=== PATIENT | female | born 1995 | race Caucasian/White ===

== ENCOUNTER 2024-11-15 20:52 | Observation (INO) ==
--- NOTE | 2024-11-15 22:05 | Emergency Department Note ---
History of Present Illness General Chief complaint: Flu Like Symptoms Stated complaint: FEVER, SORE THROAT, BODY ACHES, HEACDACHE Time Seen by Provider: 11/15/24 21:33 History of Present Illness This 29-year-old female that is 4 weeks with aplastic anemia that stopped her treatment presents the ER for flulike illness. She has been sick for 1 day. She is been taking Tylenol for the fever. Patient complains of cough, congestion, sore throat, body aches and pains. Patient denies chest pain, abdominal pain, vomiting, diarrhea, urinary symptoms. 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 Allergies Allergy/AdvReac Type Severity Reaction Status Date / Time Sulfa (Sulfonamide AdvReac Rash Verified 11/15/24 22:25 Antibiotics) Past Med/Surg History Problem List (Updated 11/15/24 @ 23:25 by Annika Lindsay PA-C) Aplastic anemia (Acute) First trimester (Acute) Fever (Acute) Leukocytosis (Acute) Acute streptococcal pharyngitis (Acute) Social History Smoking Status: Never smoker Feels Safe at Home: Yes Review of Systems A total of 10 systems reviewed and were otherwise negative Physical Exam Vital Signs Vital Signs - 24 hr 11/15/24 20:55 11/15/24 21:29 11/15/24 21:29 Temperature 36.9 C Temperature Source Temporal Artery Scan Pulse Rate 133 H 109 H 106 H Pulse Rate [Apical] Pulse Rhythm Regular Regular Pulse Rhythm [Apical] Pulse Strength Normal Pulse Strength [Apical] Respiratory Rate 18 21 Respiratory Effort / Characteristics Respiratory Depth Respiratory Pattern Blood Pressure 147/91 H Blood Pressure [Right Arm] Blood Pressure Mean 109 Blood Pressure Mean [Right Arm] Blood Pressure Position Sitting Blood Pressure Position [Right Arm] Pulse Oximetry 95 97 Oxygen Delivery Method Room Air Room Air Sepsis Recent Fever Within 48 Hours No Sepsis New/Unexplained Change in Mental Status N/A Sepsis Action Taken by Nursing No Action Required 11/15/24 22:00 11/15/24 22:23 11/15/24 23:20 Temperature Temperature Source Pulse Rate Pulse Rate [Apical] 106 H 105 H Pulse Rhythm Pulse Rhythm [Apical] Regular Pulse Strength Pulse Strength [Apical] Normal Respiratory Rate 20 17 Respiratory Effort / Characteristics Non-Labored Non-Labored Spontaneous Respiratory Depth Normal Normal Respiratory Pattern Regular Blood Pressure Blood Pressure [Right Arm] 120/79 124/81 Blood Pressure Mean Blood Pressure Mean [Right Arm] 92 95 Blood Pressure Position Blood Pressure Position [Right Arm] Lying Pulse Oximetry 98 100 Oxygen Delivery Method Room Air Room Air Room Air Sepsis Recent Fever Within 48 Hours Sepsis New/Unexplained Change in Mental Status Sepsis Action Taken by Nursing 11/15/24 23:26 Temperature Temperature Source Pulse Rate Pulse Rate [Apical] 107 H Pulse Rhythm Pulse Rhythm [Apical] Pulse Strength Pulse Strength [Apical] Respiratory Rate 18 Respiratory Effort / Characteristics Non-Labored Spontaneous Respiratory Depth Normal Respiratory Pattern Regular Blood Pressure Blood Pressure [Right Arm] 124/81 Blood Pressure Mean Blood Pressure Mean [Right Arm] 95 Blood Pressure Position Blood Pressure Position [Right Arm] Lying Pulse Oximetry 99 Oxygen Delivery Method Room Air Sepsis Recent Fever Within 48 Hours Sepsis New/Unexplained Change in Mental Status Sepsis Action Taken by Nursing VITALS: Vitals are noted on the nurse's note and reviewed by myself. Vital signs stable. GENERAL: White female speaking full sentences, in no acute distress, nondiaphoretic, well-developed well-nourished. SKIN: The skin was without rashes, erythema, edema, or bruising. There is no tenting of the skin. Capillary reflex less than 2 seconds. HEAD: Normocephalic atraumatic. EARS: External auditory canals clear EYES: Pupils equal round and reactive to light and accommodation. Conjunctivae without injection, sclerae without icterus. Extraocular movements intact. NOSE: Patent, no discharge. MOUTH: Mucous membranes moist. Pharynx with erythema + exudate. Uvula midline. Airway patent. Tongue does not deviate. NECK: Supple without nuchal rigidity. No lymphadenopathy. No thyromegaly. Cervical spine is nontender. No JVD. HEART: Regular rate and rhythm LUNGS: Clear to auscultation bilaterally without wheezes, rales or rhonchi. No retractions or accessory muscle use. ABDOMEN: Positive bowel sounds x 4. Normal tympanic percussion. Soft, nontender, without masses or organomegaly. Diallo sign negative. No guarding or rebound tenderness. No CVA tenderness MUSCULOSKELETAL: No muscle atrophy, erythema, or edema noted. NEURO: Patient was alert and oriented to person place and time. Normal sensation to light and sharp touch. No focal neurological deficits. Course Administered Medications Discontinued Medications Cefepime HCl (Maxipime 2000mg) 2,000 mg in 20 mls @ 5 mls/min IV NOW STA; Protocol Stop: 11/15/24 22:05 Last Admin: 11/15/24 22:29 Dose: 5 mls/min Documented By: HB Sodium Chloride (Nss) 1,000 mls @ 999 mls/hr IV .[id number] ONE Stop: 11/15/24 23:02 Last Infusion: 11/15/24 23:15 Dose: Infused Documented By: Admin: 11/15/24 22:24 Dose: 999 mls/hr Documented By: HB Medical Decision Making Medical Records Attestation: I reviewed the patient's medical records. Home Medications Current Medication List: was personally reviewed by me Laboratory Data Attestation: I reviewed the patient's lab results. 11/15/24 22:20 11/15/24 23:15 Lab Results 11/15/24 11/15/24 11/15/24 Range/Units 21:25 21:37 22:20 WBC 23.01 H (4.8-10.8) K/ul RBC 4.32 (4.20-5.40) M/uL Hgb 12.6 (12.0-16.0) g/dl Hct 37.2 (37.0-47.0) % MCV 86.1 (80.0-100.0) fL MCH 29.2 (25.0-34.0) pg MCHC 33.9 (32.0-36.0) g/dL RDW Std Deviation 41.8 (36.4-46.3) fL RDW Coeff of Beba 13.4 (11.5-14.5) % Plt Count 230 (130-400) K/uL MPV 9.1 L (9.4-12.4) fL Immature Gran % (Auto) 1.0 % Neut % (Auto) 89.9 % Lymph % (Auto) 2.9 % [place] % (Auto) 5.6 % Eos % (Auto) 0.3 % Baso % (Auto) 0.3 % Neut # (Auto) 20.69 H (1.40-6.50) K/uL Lymph # (Auto) 0.66 L (1.20-3.40) K/uL [place] # (Auto) 1.30 H (0.11-0.59) K/uL Eos # (Auto) 0.06 (0.00-0.50) K/uL Baso # (Auto) 0.06 (0.00-0.20) K/uL Immature Gran # (Auto) 0.24 H (0.01-0.20) K/uL Sodium 132 L (136-145) mmol/L Potassium TNP Chloride 105 (98-107) mmol/L Carbon Dioxide 19 L (21-32) mmol/L Anion Gap 8 (3-11) BUN 7 (6-23) mg/dl Creatinine 0.72 (0.6-1.2) mg/dl Est Cr Clr Drug Dosing 111.7 ml/min eGFR 115.28 BUN/Creatinine Ratio 9.7 L (10-20) Glucose 188 H (70-99(Fasting)) mg/dl Lactate 1.5 (0.4-2.0) mmol/L Calcium 8.7 (8.6-10.3) mg/dl Magnesium 1.9 (1.7-2.4) mg/dl Total Bilirubin 0.5 (0.2-1.0) mg/dl Direct Bilirubin TNP AST TNP ALT 17 (7-52) U/L Alkaline Phosphatase 100 (34-104) U/L Troponin I High Sens 5.8 (0-14) pg/ml Total Protein 7.7 (6.0-8.3) gm/dl Albumin 4.3 (3.4-5.0) gm/dl Procalcitonin 3.27 H (0-0.5) ng/ml Urine Color Yellow Urine Appearance Clear (Clear) Urine pH 6.0 (4.5-7.5) Ur Specific [place] 1.006 (1.000-1.030) Urine Protein Negative (Negative) Urine Glucose (UA) Negative (Negative) Urine Ketones Trace H (Negative) Urine Blood Trace H (Negative) Urine Nitrite Negative (Negative) Urine Bilirubin Negative (Negative) Urine Urobilinogen Negative (Negative) Ur Leukocyte Esterase Trace H (Negative) Urine WBC (Auto) 6-10 H (0-5) /hpf Urine RBC (Auto) 0-2 (0-2) /hpf U Hyaline Cast (Auto) 0-2 (0-2) /lpf U Epithel Cells (Auto) 6-10 H (0-2) /hpf Urine Bacteria (Auto) 1+ H (None Seen) Adenovirus (PCR) Not Detected (NotDetected) B. pertussis DNA (PCR) Not Detected (NotDetected) B.parapertussis DNA PCR Not Detected (NotDetected) C. pneumoniae DNA (PCR) Not Detected (NotDetected) Coronavirus OC43 (PCR) Not Detected (NotDetected) Coronavirus HKU1 (PCR) Not Detected (NotDetected) Coronavirus 229E (PCR) Not Detected (NotDetected) SARS-CoV-2 (PCR) Not Detected (NotDetected) Coronavirus NL63 (PCR) Not Detected (NotDetected) Human Metapneumovir PCR Not Detected (NotDetected) Influenza Type A (PCR) Not Detected (NotDetected) Influenza Type B (PCR) Not Detected (NotDetected) M. pneumoniae (PCR) Not Detected (NotDetected) Parainfluenza 1 (PCR) Not Detected (NotDetected) Parainfluenza 2 (PCR) Not Detected (NotDetected) Parainfluenza 3 (PCR) Not Detected (NotDetected) Parainfluenza 4 (PCR) Not Detected (NotDetected) RSV (PCR) Not Detected (NotDetected) Entero/Rhino (PCR) Not Detected (NotDetected) Group A Strep (PCR) DETECTED A (NotDetected) 11/15/24 Range/Units 23:15 WBC (4.8-10.8) K/ul RBC (4.20-5.40) M/uL Hgb (12.0-16.0) g/dl Hct (37.0-47.0) % MCV (80.0-100.0) fL MCH (25.0-34.0) pg MCHC (32.0-36.0) g/dL RDW Std Deviation (36.4-46.3) fL RDW Coeff of Beba (11.5-14.5) % Plt Count (130-400) K/uL MPV (9.4-12.4) fL Immature Gran % (Auto) % Neut % (Auto) % Lymph % (Auto) % [place] % (Auto) % Eos % (Auto) % Baso % (Auto) % Neut # (Auto) (1.40-6.50) K/uL Lymph # (Auto) (1.20-3.40) K/uL [place] # (Auto) (0.11-0.59) K/uL Eos # (Auto) (0.00-0.50) K/uL Baso # (Auto) (0.00-0.20) K/uL Immature Gran # (Auto) (0.01-0.20) K/uL Sodium (136-145) mmol/L Potassium 3.3 L Chloride (98-107) mmol/L Carbon Dioxide (21-32) mmol/L Anion Gap (3-11) BUN (6-23) mg/dl Creatinine (0.6-1.2) mg/dl Est Cr Clr Drug Dosing ml/min eGFR BUN/Creatinine Ratio (10-20) Glucose (70-99(Fasting)) mg/dl Lactate (0.4-2.0) mmol/L Calcium (8.6-10.3) mg/dl Magnesium (1.7-2.4) mg/dl Total Bilirubin (0.2-1.0) mg/dl Direct Bilirubin 0.0 AST 17 ALT (7-52) U/L Alkaline Phosphatase (34-104) U/L Troponin I High Sens (0-14) pg/ml Total Protein (6.0-8.3) gm/dl Albumin (3.4-5.0) gm/dl Procalcitonin (0-0.5) ng/ml Urine Color Urine Appearance (Clear) Urine pH (4.5-7.5) Ur Specific [place] (1.000-1.030) Urine Protein (Negative) Urine Glucose (UA) (Negative) Urine Ketones (Negative) Urine Blood (Negative) Urine Nitrite (Negative) Urine Bilirubin (Negative) Urine Urobilinogen (Negative) Ur Leukocyte Esterase (Negative) Urine WBC (Auto) (0-5) /hpf Urine RBC (Auto) (0-2) /hpf U Hyaline Cast (Auto) (0-2) /lpf U Epithel Cells (Auto) (0-2) /hpf Urine Bacteria (Auto) (None Seen) Adenovirus (PCR) (NotDetected) B. pertussis DNA (PCR) (NotDetected) B.parapertussis DNA PCR (NotDetected) C. pneumoniae DNA (PCR) (NotDetected) Coronavirus OC43 (PCR) (NotDetected) Coronavirus HKU1 (PCR) (NotDetected) Coronavirus 229E (PCR) (NotDetected) SARS-CoV-2 (PCR) (NotDetected) Coronavirus NL63 (PCR) (NotDetected) Human Metapneumovir PCR (NotDetected) Influenza Type A (PCR) (NotDetected) Influenza Type B (PCR) (NotDetected) M. pneumoniae (PCR) (NotDetected) Parainfluenza 1 (PCR) (NotDetected) Parainfluenza 2 (PCR) (NotDetected) Parainfluenza 3 (PCR) (NotDetected) Parainfluenza 4 (PCR) (NotDetected) RSV (PCR) (NotDetected) Entero/Rhino (PCR) (NotDetected) Group A Strep (PCR) (NotDetected) Imaging Data Attestation: I personally reviewed and interpreted this imaging study as follows: Radiologist's Impression: Chest X-Ray 11/15/24 21:57 Exam(s): XR CXR 1 VIEW EXAM: XR Chest, 1 View CLINICAL HISTORY: Reason for exam: Sepsis. TECHNIQUE: Frontal view of the chest. COMPARISON: No relevant prior studies available. FINDINGS: Lungs: Unremarkable. No consolidation. Pleural space: Unremarkable. No pleural effusion or pneumothorax. Heart: Unremarkable. No cardiomegaly or pulmonary vascular congestion. Bones/joints: No acute fracture. No dislocation. IMPRESSION: No evidence of acute cardiopulmonary disease. Electronically signed by: Tyler Hatch M.D. 11/15/24 22:46 PM [facility] Narrative Prior records/ancillary studies reviewed. Triage Nursing notes reviewed. Additional history obtained from family. The patient's history was concerning for fever. Differential diagnosis: Etiologies such as viral syndrome, otitis, pharyngitis, pneumonia, influenza, meningitis, urinary tract infection, sepsis, bacteremia, as well as others were entertained. Physical examination: As above ER treatment provided: An order was placed for continuous cardiac monitoring. The monitor shows a rate of 60-100 with a sinus rhythm per my interpretation. IV fluids, cefepime On reassessment the patient felt better. Diagnostics interpreted by me: ECG: Ordered for weakness EKG: Normal sinus, normal intervals, no acute ST changes, rate of 105. Impression sinus tachycardia independently interpreted by myself The labs Independently Interpreted by myself revealed leukocytosis, positive strep, negative BioFire Blood cultures pending Negative lactic. Elevated procalcitonin Imaging studies: Chest x-ray was reviewed and read by radiology Consultation: A consultation was placed with hospitalist. The case was discussed and diagnostics were reviewed. The patient was evaluated in the ER for further treatment. Medicine will admit. Consultation was placed with heme-onc, Dr. Lerner and the case discussed. They recommend continue with current treatment plan of antibiotics and admission. Consultation was placed with OB, Dr. Hogue and states there is nothing OB needs to do at this time. This appears to be consistent with strep pharyngitis leukocytosis and a aplastic anemic patient currently untreated who was recently on cyclosporine. Patient started on cefepime upon initial evaluation. Blood cultures are pending. Lactic was negative. Pro-Melvin was elevated. Platelet count was stable. Medicine and hematology/oncology were consulted. Patient was admitted to the medical service and is agreeable. By the evaluation outlined above emergent etiologies such as otitis pneumonia, meningitis, urinary tract infection, as well as others were deemed relatively unlikely. The pt informed about the findings as listed above. All questions were answered and pleased with the treatment. The chart was completed utilizing [employer] Speech voice recognition software. Grammatical errors, random word insertions, pronoun errors, and incomplete sentences are an occassional consequence of this system due to software limitations, ambient noise, and hardware issues. Any formal questions or concerns about the content, text, or information contained within the body of this dictation should be directly addressed to the physician nutrition assistant for clarification. Impression & Plan Acute streptococcal pharyngitis, Leukocytosis, Fever, First trimester , Aplastic anemia Discharge Plan Visit Data Chief Complaint: Flu Like Symptoms Stated Complaint: FEVER, SORE THROAT, BODY ACHES, HEACDACHE ED Provider: Hakeem Horowitz ED Midlevel Provider: Annika Lindsay Discharge Problem: Acute streptococcal pharyngitis, Leukocytosis, Fever, First trimester , Aplastic anemia Patient Disposition: Admitted As Inpatient Condition: Good Forms Stand Alone Forms: My [facility] Referrals Referrals: PCP,NO [Physician] -
[2024-11-15] MEDS: SODIUM CHLORIDE 0.9% 1,000 ML IV ONE (22:24)
[2024-11-15] MEDS: CEFEPIME 2000MG 2,000 MG/20 ML SYR IV STA (22:29)
[2024-11-15 22:37] LABS: Adenovirus PCR Not Detected (NotDetected); Bordetella parapertussis PCR Not Detected (NotDetected); Bordetella pertussis PCR Not Detected (NotDetected); Chlamydia pneumoniae PCR Not Detected (NotDetected); Coronavirus 229E PCR Not Detected (NotDetected); Coronavirus CoV-2 (COVID19)PCR Not Detected (NotDetected); Coronavirus HKU1 PCR Not Detected (NotDetected); Coronavirus NL63 PCR Not Detected (NotDetected); Coronavirus OC43PCR Not Detected (NotDetected); Human Metapneumovirus PCR Not Detected (NotDetected); Influenza A PCR Not Detected (NotDetected); Influenza B PCR Not Detected (NotDetected); Mycoplasma pneumoniae PCR Not Detected (NotDetected); Parainfluenza Virus 1 PCR Not Detected (NotDetected); Parainfluenza Virus 2 PCR Not Detected (NotDetected); Parainfluenza Virus 3 PCR Not Detected (NotDetected); Parainfluenza Virus 4 PCR Not Detected (NotDetected); Respiratory Syncytial VirusPCR Not Detected (NotDetected); Rhinovirus/Enterovirus PCR Not Detected (NotDetected)
[2024-11-15 22:39] LABS: Hematocrit (blood only) 37.2 % (37.0-47.0); Hemoglobin 12.6 g/dl (12.0-16.0); Mean Corpuscular Hemoglobin 29.2 pg (25.0-34.0); Mean Corpuscular Hgb Conc 33.9 g/dL (32.0-36.0); Mean Corpuscular Volume 86.1 fL (80.0-100.0); Mean Platelet Volume 9.1 fL (9.4-12.4); Platelet Count 230 K/uL (130-400); RDW Coefficient of Variation 13.4 % (11.5-14.5); RDW Standard Deviation 41.8 fL (36.4-46.3); Red Blood Count 4.32 M/uL (4.20-5.40); White Blood Count 23.01 K/ul (4.8-10.8)
[2024-11-15 22:47] LABS: Appearance Urine Clear (Clear); Bacteria Urine Automated 1+ (None Seen); Bilirubin Urine Negative (Negative); Blood Urine Trace (Negative); Cast Urine Automated 0-2 /lpf (0-2); Color Urine Yellow; Glucose Urine UA Negative (Negative); Ketones Urine Trace (Negative); Leukocyte Esterase Urine Trace (Negative); Nitrite Urine Negative (Negative); Protein Urine Negative (Negative); RBC Urine Automated 0-2 /hpf (0-2); Specific Gravity Urine 1.006 (1.000-1.030); Urobilinogen Urine Negative (Negative)
--- NOTE | 2024-11-15 22:47 | XRay Report ---
Exam(s): XR CXR 1 VIEW EXAM: XR Chest, 1 View CLINICAL HISTORY: Reason for exam: Sepsis. TECHNIQUE: Frontal view of the chest. COMPARISON: No relevant prior studies available. FINDINGS: Lungs: Unremarkable. No consolidation. Pleural space: Unremarkable. No pleural effusion or pneumothorax. Heart: Unremarkable. No cardiomegaly or pulmonary vascular congestion. Bones/joints: No acute fracture. No dislocation. IMPRESSION: No evidence of acute cardiopulmonary disease. Electronically signed by: Tyler Hatch M.D. 11/15/24 22:46 PM
[2024-11-15 22:59] LABS: Alanine Aminotransferase 17 U/L (7-52); Albumin Level 4.3 gm/dl (3.4-5.0); Alkaline Phosphatase 100 U/L (34-104); Anion Gap 8 (3-11); BUN Creatinine Ratio 9.7 (10-20); Bilirubin,Total 0.5 mg/dl (0.2-1.0); Blood Urea Nitrogen 7 mg/dl (6-23); Calcium 8.7 mg/dl (8.6-10.3); Carbon Dioxide 19 mmol/L (21-32); Chloride 105 mmol/L (98-107); Creatinine Clr Calc Pharmacy 111.7 ml/min; Glucose 188 mg/dl (70-99(Fasting)); Magnesium 1.9 mg/dl (1.7-2.4); Sodium 132 mmol/L (136-145); Total Protein 7.7 gm/dl (6.0-8.3); Troponin I High Sensitivity 5.8 pg/ml (0-14)
[2024-11-15 23:00] LABS: Basophils # (auto) 0.06 K/uL (0.00-0.20); Basophils % (auto) 0.3 %; Eosinophils # (auto) 0.06 K/uL (0.00-0.50); Eosinophils % (auto) 0.3 %; Immature Granulocytes # (auto) 0.24 K/uL (0.01-0.20); Lymphocytes # (auto) 0.66 K/uL (1.20-3.40); Lymphocytes % (auto) 2.9 %; Monocytes % (auto) 5.6 %; Neutrophils # (auto) 20.69 K/uL (1.40-6.50); Neutrophils % (auto) 89.9 %
[2024-11-15 23:42] LABS: Potassium 3.3 mmol/L (3.5-5.1)
--- NOTE | 2024-11-16 00:21 | History & Physical Report ---
Date of Service November 16, 2024 Assessment & Plan (1) Acute streptococcal pharyngitis: (2) Aplastic anemia: (3) Leukocytosis: (4) First trimester : (5) Hyponatremia: (6) Hypokalemia: Plan Patient is a 29-year-old female who has a past medical history of aplastic anemia, she follows with [facility] in [place] and is a part of a clinical trial. She stated that she is 4 weeks and stopped taking her medication on Tuesday. She presented to the ED due to sore throat, muscle aches, weakness, and fevers x 1 day. She tested positive for group A strep, has leukocytosis, hyponatremia, and hypokalemia. She is being admitted for IV antibiotics with hematology and OB consults. #group A strep Positive for group A strep on bio fire in ED High risk given aplastic anemia and CXR negative Afebrile in ED however patient noted temperature of 104.3F at home mildly tachycardic on admission, HR 107 likely secondary to acute infection Pro-Melvin 3.27 likely inflammatory rxn lactate negative on admission Monospot negative isolation preacutions IVF resuscitation 1L NSS bolus in ED, continue NSS at 80 mL/h overnight Continue cefepime 2G IV every 12h Supportive care with hydration and Tylenol as needed CMV screen/titer ordered on admission #aplastic anemia Patient with history of aplastic anemia on clinical trial with [facility] patient holding clinical trial medications since 11/12/2024 due to CBC in ED showed neutrophilia (28.69), lymphopenia (0.66), monocytosis (1.30) - along with left shift Hematology on board for admission, no change to treatment plan at this time Consult heme/onc trend cbc #leukocytosis WBC 23.01 with neutrophil predominance and left shift as above 2/2 acute infection and history of aplastic anemia Unsure of baseline as racing secretary is working to obtain records at this time Consult heme-onc as above # Patient stated she is approximately 4 weeks - has not established care with OB yet qualitative hCG positive on admission High risk given history of aplastic anemia and acute infection Cefepime and potassium repletion safe in Consult [facility] [employer] #hyponatremia NA 132 on admission 2/2 acute infection and decreased p.o. intake Serum osmole, urine osmole, urine sodium ordered Anticipate to improve with IVF resuscitation with NSS as above # hypokalemia 2/2 acute infection and decreased p.o. intake K+ 3.3 on admission potassium repletion - 30 mEq IV K rider + 40 mEq p.o. Mg stable, 1.9 Trend BMP and Mg VTE ppx: SCDs Diet: regular Dispo: med/tele ER community outreach specialist working to obtain records from [facility] and PCP. With admission being in the middle of the night, daytime team to follow-up on these. Ordered placed to request records. Admission and Anticipated Discharge Date Admission Date: 11/16/24 History of Present Illness Chief Complaint: flulike symptoms Primary Care Provider: Jose Luis Ravinderlilli Patient is a 29-year-old female who has a past medical history of aplastic anemia, she follows with [facility] in [place] and is a part of a clinical trial. She stated that she is 4 weeks and stopped taking her medication on Tuesday. She presented to the ED due to sore throat, muscle aches, weakness, and fevers x 1 day. She tested positive for group A strep, has leukocytosis, hyponatremia, and hypokalemia. She is being admitted for IV antibiotics with hematology and OB consults. Patient seen at bedside with partner present. She stated that her symptoms began yesterday when she did not feel well. She stated she had a sore throat, weakness, muscle aches, pain, fever. She noted a fever as high as 104.3F. she also endorses decreased appetite and states she has not eaten much today which could be contributing to her electrolyte abnormalities. She went to her primary care doctor this morning in [place] who tested her for start strep which was negative. She stated she had a positive home test and a positive blood test with [facility] on Tuesday. He quit taking her medication for the clinical trial for aplastic anemia on Tuesday due to the . She stated that the [facility] is aware that she is holding her medication. Patient denies headache, dizziness, lightheadedness, rhinorrhea, sore throat, cough, sputum production, dyspnea, dyspnea on exertion, chest pain, abdominal pain, nausea, vomiting, diarrhea, dysuria, rashes. She does not use nicotine products or drink alcohol. She denies any other past medical history aside from aplastic anemia; denies DM or previous VTE. She does not take any other home medications then the medication for clinical trial which she is currently holding. She wishes to be full code at this time. ED provider spoke with gluing machine operator automatic, Dr. Boothe, who recommended no different treatment plan at this time, will evaluate patient in AM. Patient has not yet established care with OB as she is only 4 weeks . Will consult OB as this is a high risk with acute infection and history of aplastic anemia. Allergies Allergy/AdvReac Type Severity Reaction Status Date / Time Sulfa (Sulfonamide AdvReac Rash Verified 11/15/24 22:25 Antibiotics) Home Medications Medication Instructions Recorded Confirmed Type amoxicillin 500 mg capsule 500 mg PO TID 10 days #30 caps 11/16/24 Rx Past Med/Surg History Problem List (Updated 11/16/24 @ 01:37 by Rodri Mathis) Hypokalemia Hyponatremia Aplastic anemia (Acute) First trimester (Acute) Fever (Acute) Leukocytosis (Acute) Acute streptococcal pharyngitis (Acute) Social History Smoking Status: Never smoker Hx Alcohol Use: No Hx Substance Use: No Preferred Language: Georgian Communication Ability: Effective Air Defense Specialist Required: No Beliefs That Will Affect Care: None Current Living Situation: Spouse Other Information That Helps Us Care for You: No Feels Safe at Home: Yes Safety Concerns: Feels Safe At This Time Assistive Devices: Glasses Review of Systems Review of Systems: See HPI Physical Exam Physical Exam: The patient is awake, alert and oriented 3, well developed and well nourished, normocephalic and atraumatic, in no acute distress. Non-toxic appearing. HEENT- EOMI, mucous membranes moist. Hearing grossly intact. Heart-normal S1 and S2. No murmurs, rubs or gallops. Lungs-clear bilaterally, no respiratory distress, no accessory muscle use. Abdomen-normal bowel sounds and soft. No ascites noted. Non-tender. Extremities- no clubbing, cyanosis, or edema. Rheumatologic-normal range of motion. Psychiatric-normal affect. Results & Data Results & Data Vital Signs (Past 12 Hours) Vital Signs Temp Pulse Pulse Resp BP BP Pulse Ox 11/15/24 23:26 107 H 18 124/81 99 11/15/24 23:20 105 H 17 124/81 100 11/15/24 22:23 11/15/24 22:00 106 H 20 120/79 98 11/15/24 21:29 106 H 21 97 11/15/24 21:29 109 H 11/15/24 20:55 36.9 C 133 H 18 147/91 H 95 O2 Del Method 11/15/24 23:26 Room Air 11/15/24 23:20 Room Air 11/15/24 22:23 Room Air 11/15/24 22:00 Room Air 11/15/24 21:29 Room Air 11/15/24 21:29 11/15/24 20:55 Room Air Laboratory Results reviewed CBC, CMP, magnesium, lactate, Pro-Melvin, UA, troponin, biofire Ordered hCG, Monospot, CMV, serum osmole, urine osmole, urine sodium on admission Diagnostic Findings reviewed CXR, negative Medications Administered ed: 1 L NSS bolus, 2G IV cefepime ECG Additional Comments: sinus tachy, rate 105 Code Status & VTE Plan Code Status full code VTE Prophylaxis Plan VTE Prophylaxis will be ordered: Yes Supervising Physician Co-Signing Physician Notes Attending addendum: I have physically seen this patient, have supervised the medical residents activities, and agree with the H&P unless as otherwise noted. Assessment and Plan: The patient is a 29-year-old female with past medical history including aplastic anemia following with [facility] in [place], as part of clinical trial. She reports that 4 weeks ago she became , and stopped taking medication about 3 days ago. She presents to the ED with complaint of sore throat, generalized muscle aches, weakness and fever x 24 hours. Workup in the emergency department included respiratory BioFire positive for group A strep, with a WBC of 23.1 with left shift. She will be admitted for IV antibiotics, with hematology and OB consults #Group A strep pharyngitis- Received cefepime 2 g IV from the ED, and normal saline 1 L fluid bolus Patient did meet mild septic criteria upon admission due to increased heart rate, leukocytosis, and initial borderline low blood pressure. Procalcitonin also 3.27 Monospot negative, CMV pending Admitting on cefepime 2 g IV every 12 hours IV fluid resuscitation status post 1 L normal saline bolus in ED, will continue NSS at 80 mL/h x 1 additional liter #Aplastic anemia- Follow-up with [facility] Reports that she was a complete responder Hematology has been consulted, will see patient in the a.m. Repeat CBC with differential in the a.m. #4-week Consulted with OB, who will see patient in the a.m., and monitor as needed #Electrolyte changes- Sodium 132, with potassium 3.3 on admission and magnesium 1.9 Potassium repletion as noted, IV fluids as noted, repeat laboratories in the a.m. PG Care Time/CCT Total # of Minutes Spent Total Time Spent with Patient: Total time spent is greater than 50% in coordination of care (as documented) at patient's floor/unit and/or counseling patient: Coding Level of Care Code 52802 INT INP/OBS CARE 3/75MIN Diagnoses Acute streptococcal pharyngitis J02.0 Aplastic anemia D61.9 Leukocytosis D72.829 First trimester Z34.91 Hyponatremia E87.1 Hypokalemia E87.6
[2024-11-16 00:30] LABS: Monotest Negative (Negative); Pregnancy Test, Serum Positive (Negative)
[2024-11-16] MEDS: POTASSIUM CHLORIDE CRTAB 20 MEQ TABCR PO STA (00:50)
[2024-11-16] MEDS: SODIUM CHLORIDE 0.9% 1,000 ML IV SCH (00:51)
[2024-11-16] MEDS: POTASSIUM CHLORIDE / WTR 10 MEQ/100 ML PLCT IV SCH (00:51)
[2024-11-16] MEDS: ACETAMINOPHEN 325 MG TAB PO PRN (02:07)
[2024-11-16 06:26] LABS: Hematocrit (blood only) 34.6 % (37.0-47.0); Hemoglobin 11.5 g/dl (12.0-16.0); Mean Corpuscular Hemoglobin 29.2 pg (25.0-34.0); Mean Corpuscular Hgb Conc 33.2 g/dL (32.0-36.0); Mean Corpuscular Volume 87.8 fL (80.0-100.0); Mean Platelet Volume 8.7 fL (9.4-12.4); Platelet Count 190 K/uL (130-400); RDW Coefficient of Variation 13.7 % (11.5-14.5); RDW Standard Deviation 44.1 fL (36.4-46.3); Red Blood Count 3.94 M/uL (4.20-5.40); White Blood Count 21.03 K/ul (4.8-10.8)
[2024-11-16 06:49] LABS: BUN Creatinine Ratio 8.3 (10-20); Calcium 8.5 mg/dl (8.6-10.3); Creatinine Clr Calc Pharmacy 134.5 ml/min; Potassium 4.1 mmol/L (3.5-5.1)
[2024-11-16 07:06] LABS: Basophils # (auto) 0.04 K/uL (0.00-0.20); Basophils % (auto) 0.2 %; Echinocytes 1+; Eosinophils # (auto) 0.03 K/uL (0.00-0.50); Eosinophils % (auto) 0.1 %; Immature Granulocytes # (auto) 0.27 K/uL (0.01-0.20); Immature Granulocytes % (auto) 1.3 %; Lymphocytes # (auto) 0.97 K/uL (1.20-3.40); Lymphocytes % (auto) 4.6 %; Monocytes # (auto) 1.31 K/uL (0.11-0.59); Monocytes % (auto) 6.2 %; Neutrophils # (auto) 18.41 K/uL (1.40-6.50); Neutrophils % (auto) 87.6 %; Polychromasia 1+
[2024-11-16 07:32] VITALS: RESP 20; O2SAT 98
[2024-11-16 07:38] LABS: Toxic Vacuolation 2+
--- NOTE | 2024-11-16 07:40 | Consultation ---
Date of Consultation November 16, 2024 Assessment & Plan (1) Hypokalemia: Present on Admission?: Yes (2) Hyponatremia: Present on Admission?: Yes (3) Aplastic anemia: Present on Admission?: Yes (4) First trimester : Present on Admission?: Yes (5) Fever: Present on Admission?: Yes (6) Leukocytosis: Present on Admission?: Yes (7) Acute streptococcal pharyngitis: Present on Admission?: Yes Plan Patient stated she is approximately 4 weeks - has not established care with OB yet qualitative hCG positive on admission High risk given history of aplastic anemia and acute infection Cefepime and potassium repletion as ordered No other special orders needed from OB stand point Thank you for the consult Any further questions, please contact flight operations dispatch clerk physician History of Present Illness Reason for Consultation: Early , IUP at 4 weeks, Aplastic Anemia Attending Physician: Shashank Domingo, DO History of Present Illness Patient is a 29-year-old female who has a past medical history of aplastic anemia, she follows with [facility] in [place] and is a part of a clinical trial. She stated that she is 4 weeks and stopped taking her medication on Tuesday. She presented to the ED due to sore throat, muscle aches, weakness, and fevers x 1 day. She tested positive for group A strep, has leukocytosis, hyponatremia, and hypokalemia. She is being admitted for IV antibiotics with hematology VTE ppx: SCDs Diet: regular Dispo: med/tele Patient is a 29-year-old female who has a past medical history of aplastic anemia, she follows with [facility] in [place] and is a part of a clinical trial. She stated that she is 4 weeks and stopped taking her medication on Tuesday. She presented to the ED due to sore throat, muscle aches, weakness, and fevers x 1 day. She tested positive for group A strep, has leukocytosis, hyponatremia, and hypokalemia. She is being admitted for IV antibiotics with hematology and OB consults. Patient seen at bedside with partner present. She stated that her symptoms began yesterday when she did not feel well. She stated she had a sore throat, weakness, muscle aches, pain, fever. She noted a fever as high as 104.3F. she also endorses decreased appetite and states she has not eaten much today which could be contributing to her electrolyte abnormalities. She went to her primary care doctor this morning in [place] who tested her for start strep which was negative. She stated she had a positive home test and a positive blood test with [facility] on Tuesday. He quit taking her medication for the clinical trial for aplastic anemia on Tuesday due to the . She stated that the [facility] is aware that she is holding her medication. Patient denies headache, dizziness, lightheadedness, rhinorrhea, sore throat, cough, sputum production, dyspnea, dyspnea on exertion, chest pain, abdominal pain, nausea, vomiting, diarrhea, dysuria, rashes. She does not use nicotine products or drink alcohol. She denies any other past medical history aside from aplastic anemia; denies DM or previous VTE. She does not take any other home medications then the medication for clinical trial which she is currently holding. She wishes to be full code at this time. Patient has not yet established care with OB as she is only 4 weeks . Will consult OB as this is a high risk with acute infection and history of aplastic anemia. Allergies Allergy/AdvReac Type Severity Reaction Status Date / Time Sulfa (Sulfonamide AdvReac Rash Verified 11/15/24 22:25 Antibiotics) Past Med/Surg History Problem List (Updated 11/16/24 @ 00:32 by Gretel Jeffrey PA-C) Hypokalemia Hyponatremia Aplastic anemia (Acute) First trimester (Acute) Fever (Acute) Leukocytosis (Acute) Acute streptococcal pharyngitis (Acute) Social History Smoking Status: Never smoker Feels Safe at Home: Yes Review of Systems Review of Systems: See HPI Allergies Allergy/AdvReac Type Severity Reaction Status Date / Time Sulfa (Sulfonamide AdvReac Rash Verified 11/15/24 22:25 Antibiotics) Patient History Social History Smoking Status: Never smoker Hx Alcohol Use: No Hx Substance Use: No Preferred Language: Luxembourgish Communication Ability: Effective Appointment Setter Required: No Beliefs That Will Affect Care: None Current Living Situation: Spouse Other Information That Helps Us Care for You: No Feels Safe at Home: Yes Safety Concerns: Feels Safe At This Time Assistive Devices: Glasses Results & Data Vital Signs (Past 12 Hours) Vital Signs Temp Pulse Pulse Resp BP BP Pulse Ox 11/16/24 07:16 102 H 11/16/24 03:52 37.8 C H 109 H 16 109/69 95 11/16/24 02:09 11/16/24 02:09 38.2 C H 121 H 18 130/78 99 11/16/24 01:50 117 H 11/16/24 01:50 38.2 C H 121 H 18 120/78 99 11/16/24 01:37 107 H 21 130/88 98 11/15/24 23:26 107 H 18 124/81 99 11/15/24 23:20 105 H 17 124/81 100 11/15/24 22:23 11/15/24 22:00 106 H 20 120/79 98 11/15/24 21:29 106 H 21 97 11/15/24 21:29 109 H 11/15/24 20:55 36.9 C 133 H 18 147/91 H 95 O2 Del Method 11/16/24 07:16 11/16/24 03:52 Room Air 11/16/24 02:09 Room Air 11/16/24 02:09 Room Air 11/16/24 01:50 11/16/24 01:50 Room Air 11/16/24 01:37 Room Air 11/15/24 23:26 Room Air 11/15/24 23:20 Room Air 11/15/24 22:23 Room Air 11/15/24 22:00 Room Air 11/15/24 21:29 Room Air 11/15/24 21:29 11/15/24 20:55 Room Air
--- NOTE | 2024-11-16 08:44 | Medical Student Progress Note ---
Date of Service November 16, 2024 Assessment & Plan (1) Hypokalemia: (2) Hyponatremia: (3) Aplastic anemia: (4) First trimester : (5) Fever: (6) Leukocytosis: (7) Acute streptococcal pharyngitis: Plan #acute streptococcal pharyngitis -recorded home fevers <104, leukocytosis of >20 with neutrophil predominance on admission -group A strep (+), procal 3.27 -Tylenol PRN for fever and pain -discontinue cefepime, start amoxicillin #aplastic anemia -WBC 21, RBC 3.94, Hgb 11.5, Hct 34.6 -has been on a clinical trial of cyclosporine 75mg PO daily from - 11/12/24, pt d/c'd med due to . she was supposed to be in the clinical trial until -pt notes an admission in Aug 2023 at [facility] and said she was told she is a "complete responder" -patient without neutropenia, resolving fevers and tachycardia. will deescalate abx as above -heme consulted, apprec recs #first trimester -OBGYN consulted -approx 4 weeks -patient currently working to get in with high risk OBGYN #hypokalemia, hyponatremia -potassium repletion, maintenance fluids -resolved, continue to monitor BMP Dispo: med/surg w tele diet: regular VTE ppx: low risk, SCDs and ambulation Admission and Anticipated Discharge Date Admission Date: November 16, 2024 Subjective feeling better today, less fever and aches. continues to have sore throat and mild headache. no SOB, abd or chest pain, vaginal bleeding, or leaking of fluid. Physical Exam Constitutional: well appearing, no acute distress ENMT: L>R b/l edematous, erythematous tonsils with excess exudates/purulence Respiratory: normal respiratory effort, lungs clear to auscultation Cardiovascular: RRR, no murmur, no edema Skin: no rashes, warm and dry Results & Data Vital Signs (Past 12 Hours) Vital Signs Temp Pulse Pulse Resp BP BP BP 11/16/24 07:31 37.8 C H 104 H 20 118/80 11/16/24 07:16 102 H 11/16/24 03:52 37.8 C H 109 H 16 109/69 11/16/24 02:09 11/16/24 02:09 38.2 C H 121 H 18 130/78 11/16/24 01:50 117 H 11/16/24 01:50 38.2 C H 121 H 18 120/78 11/16/24 01:37 107 H 21 130/88 11/15/24 23:26 107 H 18 124/81 11/15/24 23:20 105 H 17 124/81 11/15/24 22:23 11/15/24 22:00 106 H 20 120/79 11/15/24 21:29 106 H 21 11/15/24 21:29 109 H 11/15/24 20:55 36.9 C 133 H 18 147/91 H Pulse Ox O2 Del Method 11/16/24 07:31 98 Room Air 11/16/24 07:16 11/16/24 03:52 95 Room Air 11/16/24 02:09 Room Air 11/16/24 02:09 99 Room Air 11/16/24 01:50 11/16/24 01:50 99 Room Air 11/16/24 01:37 98 Room Air 11/15/24 23:26 99 Room Air 11/15/24 23:20 100 Room Air 11/15/24 22:23 Room Air 11/15/24 22:00 98 Room Air 11/15/24 21:29 97 Room Air 11/15/24 21:29 11/15/24 20:55 95 Room Air
[2024-11-16] MEDS: CEFEPIME 2000MG 2,000 MG/20 ML SYR IV SCH (09:53)
[2024-11-16] MEDS: COUGH DROP (SUGAR FREE) LOZ 24 LOZ/1 BOX BUCCAL PRN (10:10)
[2024-11-16 11:09] VITALS: PULSE 101; TEMP 99.1
[2024-11-16 12:39] VITALS: BP 109/69
--- NOTE | 2024-11-16 12:46 | Med Student Discharge Summary ---
Date of Service November 16, 2024 Admission HPI Per Admitting Provider Patient is a 29-year-old female who has a past medical history of aplastic anemia, she follows with [facility] in [place] and is a part of a clinical trial. She stated that she is 4 weeks and stopped taking her medication on Tuesday. She presented to the ED due to sore throat, muscle aches, weakness, and fevers x 1 day. She tested positive for group A strep, has leukocytosis, hyponatremia, and hypokalemia. She is being admitted for IV antibiotics with hematology and OB consults. Patient seen at bedside with partner present. She stated that her symptoms began yesterday when she did not feel well. She stated she had a sore throat, weakness, muscle aches, pain, fever. She noted a fever as high as 104.3F. she also endorses decreased appetite and states she has not eaten much today which could be contributing to her electrolyte abnormalities. She went to her primary care doctor this morning in [place] who tested her for start strep which was negative. She stated she had a positive home test and a positive blood test with [facility] on Tuesday. He quit taking her medication for the clinical trial for aplastic anemia on Tuesday due to the . She stated that the [facility] is aware that she is holding her medication. Patient denies headache, dizziness, lightheadedness, rhinorrhea, sore throat, cough, sputum production, dyspnea, dyspnea on exertion, chest pain, abdominal pain, nausea, vomiting, diarrhea, dysuria, rashes. She does not use nicotine products or drink alcohol. She denies any other past medical history aside from aplastic anemia; denies DM or previous VTE. She does not take any other home medications then the medication for clinical trial which she is currently holding. She wishes to be full code at this time. ED provider spoke with equipment sales specialist, Dr. Boothe, who recommended no different treatment plan at this time, will evaluate patient in AM. Patient has not yet established care with OB as she is only 4 weeks . Will consult OB as this is a high risk with acute infection and history of aplastic anemia. Admission Exam (Per Admitting) Constitutional The patient is awake, alert and oriented 3, well developed and well nourished, normocephalic and atraumatic, in no acute distress. Non-toxic appearing. HEENT- EOMI, mucous membranes moist. Hearing grossly intact. Heart-normal S1 and S2. No murmurs, rubs or gallops. Lungs-clear bilaterally, no respiratory distress, no accessory muscle use. Abdomen-normal bowel sounds and soft. No ascites noted. Non-tender. Extremities- no clubbing, cyanosis, or edema. Rheumatologic-normal range of motion. Psychiatric-normal affect. Respiratory normal respiratory effort, lungs clear to auscultation Cardiovascular RRR, no murmur, no edema Gastrointestinal (Abdomen) normal bowel sounds, soft, nontender, no hepatosplenomegaly Skin no rashes, warm and dry Discharge Exam Constitutional comfortable, well appearing ENMT L>R b/l edematous, erythematous tonsils with excessive exudates/purulence Respiratory normal respiratory effort, lungs clear to auscultation Cardiovascular RRR, no murmur, no edema Gastrointestinal (Abdomen) normal bowel sounds, soft, nontender, no hepatosplenomegaly Skin no rashes, warm and dry Discharge Data Consultations 11/16/24 00:14 ED Decision to Admit Stat 11/16/24 01:50 Consult Hematology Routine Consult Obstetrics Routine Hospital Course (1) Hypokalemia: (2) Hyponatremia: (3) Aplastic anemia: (4) First trimester : (5) Fever: (6) Leukocytosis: (7) Acute streptococcal pharyngitis: Plan #acute streptococcal pharyngitis -Group A (+), leukocytosis on arrival >20, tachycardic, febrile with flu like symptoms -down trending WBC, normalizing vitals upon d/c -continue home amoxicillin 500mg TID for a total of 10 days #aplastic anemia -Patient with history of aplastic anemia on clinical trial with [facility], was taking cyclosprine 75 mg PO daily from - 11/12/2024. patient stopped due to . states she was told she was a "complete responder" -CBC in ED showed neutrophilia (28.69), lymphopenia (0.66), monocytosis (1.30) - along with left shift -blood counts and hgb reassuring, no neutropenia -follow up with doctor at [facility] who is managing care #first trimester -Patient stated she is approximately 4 weeks - has not established care with OB yet -is set up to follow up with [facility] and will set up care with [facility] considering hx of anemia and experimental drug trials Discharge Plan Discharge Items Patient Disposition: Home - Self-Care Reason For Visit: GROUP A STREP,APLASTIC ANEMIA, Discharge Diagnosis: Group A strep Condition on Discharge: Good Activity: Resume your previous activity Non-emergency contact: Primary Care Provider Call non-emergency contact if: you have any medication questions, your pain is concerning for you and your temperature is above 101.5 Follow-up/Referrals: Jose Luis Parkinson CRNP [Primary Care Provider] - (Please call your primary care provider to schedule a hospital discharge follow-up appointment within 7-10 days) Diet: Regular Addtl Attending Provider Instructions: You were admitted to the hospital for strep throat. You were treated with antibiotics and got better. A discharge summary will be sent to your primary care physician to ensure continuity of care. Please bring this discharge summary with you to your next office appointment so that your provider can review it at that time. Follow-up appointments: * Make a follow-up appointment with your PCP within the next week. It is very important that you follow up with them shortly after discharge from the hospital. * Keep all your follow-up appointments as already scheduled. If you cannot make an appointment, notify your provider. Medications: Your medication list has been reviewed and reconciled upon discharge to ensure accuracy and continuity of care. An updated list of all your medications is included with your hospital discharge paperwork. Please review this list closely, and make note of any changes. * Continue amoxicillin to your pharmacy. Take amoxicillin (500mg) 1 tab , three times a day for 10 days total. * If you have any issues filling these prescriptions, please call [phone] and ask to leave a message for Dr. Martinez. * Take your medications as instructed; do not skip a dose of your medicines. Make sure all of your doctors know every medicine you are taking (including cvyi-nty-ntniarg medicines, vitamins, and supplements). Call your primary care provider before taking any new medicines (including over- the-counter medicines, vitamins, and supplements), because some of these may interact with your current medications, or may make your symptoms worse. Tell your primary care provider if you cannot afford your medications. CONTACT YOUR PRIMARY CARE PROVIDER if you experience any of the following: * Worsening of symptoms * Fever, chills, or fatigue * Difficulty following your treatment plan, or difficulty taking medications CALL 911 OR GO TO THE EMERGENCY DEPARTMENT if you experience any of the following: * Sudden, severe abdominal pain or nausea/vomiting * Severe chest pain, or chest pain that radiates (moves) to your jaw or arm * Sudden, severe shortness of breath or difficulty breathing Thank you for allowing us to participate in your care. Pending Studies at Discharge: No Stand-Alone Forms: My [facility], Smoking Cessation Medications and DC Order Prescriptions: New amoxicillin 500 mg capsule 500 mg PO TID 10 Days Qty: 30 0RF Discharge Orders: Discharge Order (Routine); Ordered 11/16/24 Ordered By: Mckinley Martinez Admission Data Admit Date/Time: 11/16/24 00:18 Attending Provider: Shashank Domingo Admit Provider: Lele Vazquez Primary Care Provider: Jose Luis Parkinson Other Providers: Lisa Hogue; Lele Vazquez Other Interventions: Discharge Summary Assessment (RN) Last Done: 11/16/24 12:38 Supervising Attestation I personally examined the patient and verified all condon points of history and exam, discussed case, and agree with decision making with Dr Martinez and Tarah Bauer MS4 Feeling a good deal better. Still with some degree of temperature, throat still very sore. No cough no shortness of breath. No rashes, no urinary symptoms. Otherwise feels okay. Expresses very good understanding of what is going on. Notes that she has been told her aplastic anemia was a complete responder. APPLICATION DEVELOPMENT PROJECT MANAGER input appreciated. Vitals noted, in general she is awake and alert fatigued but no distress. HEENT normocephalic atraumatic mucous membranes moist, pharynx erythematous with rather significant tonsillar exudate, although still very wide/patent oropharynx. Large mobile anterior cervical adenopathy. Lungs clear to auscultation bilaterally no rales rhonchi or wheeze with good effort no accessory muscle use. Skin without rashes pallor or icterus. Neuro without focal deficits. Strep pharyngitis with sepsis present on admissionfortunately not severe sepsis; at the same time, discussed with patient it was a little bit odd to see someone as septic as she was with simply strep pharyngitiswhich is probably where her immune compromise comes into play. She expressed a good understanding of this. At the same time, strep is almost universally beta-lactam sensitiveand we discussed that I suspect the amoxicillin she was already started on was working, but just that she had not turned the corner as fast as would be expected for strepagain likely because she has a relative degree of immune compromise. We discussed ongoing watchful waiting in the hospital versus home with close outpatient follow-up. She felt comfortable with going home and would very much like to go homethis seemed safe and reasonable given that she is improving. Discussed red flags of what to watch for as well as to return or get evaluated right away with any new or worsening symptoms. Reached out to her PCP to update herand I anticipate being able to discuss the situation with her later this afternoon. Discussed with the patient that blood cultures are pending, I do not anticipate bacteremia, but if we were to be surprised with positive blood cultures we would need to bring her backshe expressed a good understanding of this as well. Finish out course of amoxicillin. Otherwise safe/stable for home.
--- NOTE | 2024-11-16 14:04 | Billing Data ---
Date of Service November 16, 2024 Coding Level of Care Code 25850 IN/OBS DISCH 30 MIN/LESS
--- NOTE | 2024-11-16 14:04 | Billing Data ---
Date of Service November 16, 2024 Coding Level of Care Code 50509 IN/OBS DISCH 30 MIN/LESS
--- NOTE | 2024-11-16 14:33 | Electrocardiogram Report ---
Test Reason : Blood Pressure : */* mmHG Vent. Rate : 105 BPM Atrial Rate : 105 BPM P-R Int : 168 ms QRS Dur : 98 ms QT Int : 344 ms P-R-T Axes : 59 13 21 degrees QTcB Int : 454 ms Sinus tachycardia Nonspecific T wave abnormality Abnormal ECG No previous ECGs available Confirmed by Hakeem Rivera ([id number]) on 11/16/2024 2:33:16 PM Referred By: REFERRED SELF Confirmed By: Hakeem Rivera
[2024-11-16] MEDS ORDERED: AMOXICILLIN 875 MG TAB PO SCH (21:00)
[2024-11-19 14:02] LABS: CMV IgG Antibody <0.60 U/mL; CMV IgM Antibody <30.00 AU/mL
[2024-11-19 14:16] LABS: EBV Nuclear Ag Antibody <18.00 U/mL; EBV Virus Capsid Ag IgG Ab <18.00 U/mL; Epstein Barr Virus Early Ag Ab <9.00 U/mL
== END 2024-11-16 13:30 | disposition home or self-care (01) | DRG 831 ==
LOC: ED 20:52 → 2W 11-16 00:18 → INTOOBSV 11-16 00:18 → SUATTDRO 11-16 00:18 → 2W 11-16 01:37

== ENCOUNTER 2025-07-11 05:33 | Inpatient (IN) ==
--- NOTE | 2025-07-02 12:37 | Anesthesiology Consultation ---
Date of Service July 02, 2025 Assessment & Plan (1) Encounter for pre-operative examination: - Per battery loader on 07/02/25: No known infectious disease contacts, current infectious disease symptoms in past 10 days or COVID positive test result in the past 30 days. Chart Review Chart Review: data entry initiated History Surgery Operation Date: 07/11/25 07:30 Proposed Procedures p Section in LD (Delivery of Baby through abdominal incision) - Maria Del Rosario Dennis MD, FACOG Height/Weight Height: 5 ft 4 in Weight: 82.554 kg Allergies Allergy/AdvReac Type Severity Reaction Status Date / Time Sulfa (Sulfonamide AdvReac Unknown Rash Verified 07/02/25 11:56 Antibiotics) Medications Home Medications Medication Instructions Recorded Confirmed Last Taken prenat.vits,leticia,[id number] 1 tab PO DAILY 12/11/24 07/02/25 06/22/25 acetone (urine) test (Ketone Urine #50 ea 06/03/25 06/25/25 Unknown Test strips) blood sugar diagnostic (Accu-Chek #150 ea 06/03/25 06/25/25 Unknown Guide test strips) blood-glucose meter (Accu-Chek #1 ea 06/03/25 06/25/25 Unknown Guide Glucose Meter) lancets (Accu-Chek Softclix #200 ea 06/03/25 06/25/25 Unknown Lancets) Past Medical History Medical History (Updated 07/02/25 @ 12:34 by Tammie Terrell PA-C) Aplastic anemia in remission currently Chronic hypertension affecting pt reports hx high blood pressure from side effects of tx for Aplastic Anemia. Gestational diabetes Past Surgical History Surgical History History of laparoscopic cholecystectomy [place] teeth removed hx Social History Smoking Status: Never smoker Do You Dip or Chew Tobacco: No Hx Alcohol Use: No Hx Substance Use: No substance use type: does not use Lab Results Anesthesia Preop Results Results Anesthesia Widget: WBC 11.58 K/ul (4.8-10.8) H 06/23/25 Hgb 11.3 g/dl (12.0-16.0) L 06/23/25 Hct 32.5 % (37.0-47.0) L 06/23/25 Plt 204 K/uL (130-400) 06/23/25 Na 136 mmol/L (136-145) 06/23/25 K 3.1 mmol/L (3.5-5.1) L 06/23/25 Cl 107 mmol/L (98-107) 06/23/25 CO2 20 mmol/L (21-32) L 06/23/25 BUN 5 mg/dl (6-23) L 06/23/25 Creat 0.55 mg/dl (0.6-1.2) L 06/23/25 Glucose Level 85 mg/dl (70-99(Fasting)) 06/23/25 POC Glucose 81 mg/dl (70-99) 05/25/25 Testing Electrocardiogram Date: 11/15/24 Sinus tachycardia, rate 105 bpm Nonspecific T wave abnormality Chest X-Ray Date: 11/15/24 *1 view* No evidence of acute cardiopulmonary disease. Echocardiogram Date: 01/31/25 EF 60-65% Normal LV wall motion No significant valvular pathology Other Testing Brain MRI 10/15/24 No acute intracranial pathology
[2025-07-11 06:10] LABS: Hematocrit (blood only) 33.3 % (37.0-47.0); Hemoglobin 10.9 g/dl (12.0-16.0); Immature Granulocytes # (auto) 0.17 K/uL (0.01-0.20); Immature Granulocytes % (auto) 1.7 %; Mean Corpuscular Hemoglobin 28.2 pg (25.0-34.0); Mean Corpuscular Volume 86.3 fL (80.0-100.0); Platelet Count 194 K/uL (130-400); RDW Standard Deviation 41.6 fL (36.4-46.3); Red Blood Count 3.86 M/uL (4.20-5.40); White Blood Count 10.10 K/ul (4.8-10.8)
[2025-07-11] MEDS ORDERED: SODIUM CHLORIDE 0.9% 100 ML IV PRN (06:10)
[2025-07-11] MEDS: LACTATED RINGER'S 1,000 ML IV SCH (06:15)
[2025-07-11] MEDS: ACETAMINOPHEN 500 MG TAB PO SCH (06:16)
[2025-07-11] MEDS ORDERED: LACTATED RINGER'S 1,000 ML IV SCH ×2 (06:45→09:00)
--- NOTE | 2025-07-11 07:10 | History & Physical Report ---
Date of Service July 11, 2025 Assessment & Plan (1) Encounter for pre-operative examination: Plan: Repeat section. The patient was counseled to the nature of the procedure including alternatives such as labor. Risks were discussed including bleeding infection injury to bowel bladder ureter vessels and even baby. The risks of internal organ injury were discussed as being higher with prior sections. Deep Vein Thrombosis, pulmonary embolus and breakdown of the incision discussed. Deep vein thrombosis pulmonary embolus hernia and failure of the incision to heal were discussed Patient verbalized understanding of this and was given ample time to ask questions Also wishes tubal Tubal ligation, bilateral salpingectomy, possible coagulation of tubes. Alternatives discussed including medical, implant, IUD options. Failure rate discussed. Risks including injury to internal organs, infection, deep vein thrombosis, hernia, anesthetic risks discussed. Option of not doing surgery discussed. All questions answered Admission and Anticipated Discharge Date Admission Date: July 11, 2025 History of Present Illness Primary Care Provider: Jose Luis Parkinson Visit JEREMY Calculator Estimated Delivery Date Method Current WG Current Estimate 07/23/25 LMP (Certain) 38w 1d Other Estimates 07/22/25 Ultrasound #1 38w 2d LMP: 10/16/24 : 2 Full term: 1 Premature: 0 Total Number of Induced Abortions: 0 Total Number of Spontaneous Abortions: 0 Ectopics: 0 Multiple births: 0 Number of Living Children: 1 and Delivery Plans GDM w/16wk glucola *Begin monthly Growth US's @24wks Aplastic Anemia *[facility] [place] [facility] [place] -baseline PET labs -low dose aspirin -baseline EKG(done in october) and echo([facility] 01/2025) -Heme referral; [facility] -early anatomy US at 16wks -Offer detailed anatomy US -Monthly growth US at 24wks *in [facility] clinical trial hep b non immune CHTN *Baby ASA daily start 12-28 wks, continue until delivery *wkly NST's @32wks and twice wkly @36 wks *Serial Growth US @ 24 (doppler only if abnml) *Baseline 24hr urine (additional PRN) *weekly KELSY's @ 32wk(If on Meds) *Deliver [id number] (If on Meds) *Deliver [id number] (Not on Meds) BREECH PRESENTATION C/S SCHEDULED FOR 07/11/[address] CROSS Allergies Allergy/AdvReac Type Severity Reaction Status Date / Time Sulfa (Sulfonamide AdvReac Unknown Rash Verified 07/10/25 09:17 Antibiotics) Home Medications Medication Instructions Recorded Confirmed Type prenat.vits,leticia,[id number] 1 tab PO DAILY 12/11/24 07/11/25 History acetone (urine) test (Ketone Urine #50 ea 06/03/25 07/10/25 Rx Test strips) blood sugar diagnostic (Accu-Chek #150 ea 06/03/25 07/10/25 Rx Guide test strips) blood-glucose meter (Accu-Chek #1 ea 06/03/25 07/10/25 Rx Guide Glucose Meter) lancets (Accu-Chek Softclix #200 ea 06/03/25 07/10/25 Rx Lancets) Patient History Medical History Aplastic anemia in remission currently Chronic hypertension affecting pt reports hx high blood pressure from side effects of tx for Aplastic Anemia. Gestational diabetes Surgical History History of laparoscopic cholecystectomy [place] teeth removed hx Social History (Updated 12/11/24 @ 10:10 by Arleth Fields) Smoking Status: Never smoker Do You Dip or Chew Tobacco: No; Hx Alcohol Use: No Hx Substance Use: No Preferred Language: Yi Communication Ability: Effective Piece Cutter Required: No Beliefs That Will Affect Care: None marital status: marital status details: Cosme (33) [phone] Current Living Situation: Spouse and Family Current Living Situation Comment: lives with spouse, daughter, 1 dog, 2 cats, spouse to change litter current occupational status: employed current occupation: Dialysis nurse Other Information That Helps Us Care for You: No Feels Safe at Home: Yes Safety Concerns: Feels Safe At This Time Assistive Devices: Glasses Physical Exam Constitutional: WD/WN, vitals as above well developed and well nourished Respiratory: normal respiratory effort, lungs clear to auscultation normal respiratory effort Cardiovascular: RRR, no murmur, no edema Gastrointestinal (Abdomen): normal bowel sounds, soft, nontender, no hepatosplenomegaly Results & Data Vital Signs (Past 12 Hours) Vital Signs Temp Pulse Resp BP 07/11/25 06:58 80 138/90 07/11/25 06:14 96 H 136/89 07/11/25 05:45 98 H 139/92 07/11/25 05:43 99.0 F 18 07/11/25 05:39 90 139/97 Coding Level of Care Code None Diagnoses Encounter for pre-operative examination Z01.818
[2025-07-11] MEDS: CITRIC ACID/SODIUM CITRATE 15 ML UDC PO SCH (07:34)
[2025-07-11] MEDS ORDERED: MoRPHine SULFATE PF 1 MG/ML 10 ML AMP/VIAL ONE (07:35)
[2025-07-11] MEDS ORDERED: PHENYLEPHRINE 100MCG/ML 5ML SYR ONE (07:35)
[2025-07-11] MEDS ORDERED: KETOROLAC 30 MG/ML VIAL IV PRN (07:40)
[2025-07-11] MEDS ORDERED: NALBUPHINE HCL INJ 10 MG/ML AMP IV PRN (07:40)
[2025-07-11] MEDS ORDERED: MoRPHine SULFATE 2 MG/ML CARP IV PRN (07:40)
[2025-07-11] MEDS ORDERED: NALOXONE HCL 1 MG in SODIUM CHLORIDE 0.9% 1,000 ML IV PRN (07:40)
[2025-07-11] MEDS ORDERED: MEPERIDINE HCL 25 MG/ML CARP/VIAL IV PRN (07:40)
[2025-07-11] MEDS ORDERED: PROMETHAZINE 6.25 MG/50.25 ML BAG IV PRN (07:40)
[2025-07-11] MEDS ORDERED: LACTATED RINGER'S 500 ML IV PRN (07:40)
[2025-07-11] MEDS ORDERED: ONDANSETRON INJ 2 MG/ML 2 ML VIAL IV PRN (07:40)
[2025-07-11] MEDS ORDERED: NALOXONE HCL 0.4 MG/1 ML VIAL/CARP IV PRN (07:40)
[2025-07-11] MEDS ORDERED: diphenhydrAMINE 50 MG/ML VIAL IV PRN (07:40)
[2025-07-11] MEDS ORDERED: ACETAMINOPHEN 1,000 MG/100 ML VIAL IV PRN (07:40)
[2025-07-11] MEDS ORDERED: HYDROmorphone INJ 0.5 MG/0.5 ML SYR IV PRN (07:40)
[2025-07-11] MEDS ORDERED: NALOXONE HCL 0.08 MG in SYRINGE 1.8 ML IV PRN (07:40)
[2025-07-11] MEDS ORDERED: DC INTRASPINAL MORPHINE SCH (07:45)
[2025-07-11] MEDS ORDERED: NO NARCOTICS OR SEDATIVES SCH (07:45)
[2025-07-11] MEDS ORDERED: OXYTOCIN 10 UNITS/ML VIAL ONE (08:09)
--- NOTE | 2025-07-11 08:52 | Operative Report ---
Post Operative Report Pre & Post Diagnosis Operation Date: 07/11/25 07:30 Pre-Op Diagnosis: 1.Breech presentation 2.39 weeks gestation 3. Request Sterilization Post-Op Diagnosis: Same as Pre operative I identified the patient and participated in the time-out.: Yes Procedure Operation Date: 07/11/25 07:30 Actual Procedures p Section in LD for [facility] at 0810 on 07/11/25 with Bilateral fallopian removal (Bilateral) - Maria Del Rosario Dennis MD, FACOG Surgeon Maria Del Rosario Dennis MD, FACOG Special Librarian Dr. Madrigal Quantitative Blood Loss (QBL) 590 Findings Consistent with Post-Op Diagnosis Specimens Bilateral fallopian tubes Cord blood Description of Procedure Regional anesthetic had been given by anesthesia patient was prepped and draped with a leftward tilt preoperative antibiotics had been given in appropriate timing by anesthesiology. Once the prep was allowed to fully dry timeout was performed. Pickups with teeth were used to test the incision area was found to be adequate for incision as the patient did not feel sharp pain. Scalpel was used to make a Pfannenstiel incision on the lower abdomen. We then cut through the subcutaneous fat down to the level of the anterior rectus sheath fascia this was cut in the midline and then extended laterally with the curved Dick scissors. At this stage we then placed 2 Kendra clamps on the anterior aspect of the fascia. Using the curved Dick's we are able to dissect the fascia superiorly away from the rectus muscles. Care was taken to maintain hemostasis. Kendra clamps were then placed to the inferior aspect of the anterior sheath of the fascia. Fascia was then dissected away from the rectus muscles inferiorly towards the pubic bone. A Kendra was then placed in the midline both inferiorly and superiorly. This was to allow exposure by retraction rectus muscles were in the midline with were then able to cut through the peritoneum and then enter the peritoneal cavity. Opening was enlarged to allow exposure of the peritoneal cavity both superiorly and inferiorly. Once adequate space was obtained a bladder retractor was placed to expose the lower segment Metzenbaums were used to dissect the bladder flap inferiorly away from the uterus. This was done sharply bladder retractor was then repositioned to expose the lower segment of the uterus Fresh scalpel was used to make a low transverse incision on the uterus. Uterus was then entered bluntly with the operators finger, membranes ruptured and the opening was enlarged using the operators fingers bluntly pulling superiorly and inferiorly to allow exposure. Baby was delivered by first flexion of the marco a breech up and out of the pelvis back was then turned to anterior gentle traction on the baby delivering each leg and then sweeping the arms towards the baby's chest. Head was delivered without extension and was delivered easily by help with pressure from the blood bank assistant live vigorous male infant. Fluid was clear cord clamped and cut cord gases obtained cord blood obtained baby handed to pediatrics. Placenta removed was removed with traction we ensure the entire placenta was removed with a moist lap sponge into the uterus Uterus was then exteriorized. IV Pitocin had been started by anesthesia tone improved there were no extensions the uterus was then closed using 0 Monocryl in a 2 layer closure the first layer closed in a running locked fashion from left to right and then a second closure from left to right in a running nonlocked fashion. At this stage hemostasis was excellent. Patient had requested tubal the right fallopian tube was grasped with a Poly using the LigaSure I carefully coagulated and cut the fallopian tube attachments through the mesosalpinx until the isthmic portion and then this was coagulated and cut with the LigaSure perpendicular to the tube specimen sent as right fallopian tube the exact same process was repeated on the right should be noted that when the uterus was placed back in the peritoneal cavity that both tubal areas were visualized and were hemostatic Uterus was placed back in the peritoneal cavity with suction irrigation out and inspection of the uterus at this stage revealed excellent hemostasis Retractors were removed urine color was clear at this stage of the case we insp ected the rectus muscles they were hemostatic fascia was closed with 0 Vicryl subcutaneous fat was irrigated and closed with 3-0 Vicryl skin closed with 4-0 subcuticular Monocryl I attest to the content of the Intraoperative Record and any orders documented therein. Any exceptions are noted below. OB Procedure Charges [id number] Add on Tubal for C/S
[2025-07-11] MEDS ORDERED: BENZOCAINE 20% SPRY 85 APPLN/85 GM CAN EXT PRN (08:57)
[2025-07-11] MEDS ORDERED: CALCIUM CARBONATE 500 MG CHEWABLE TAB PO PRN (08:57)
[2025-07-11] MEDS ORDERED: HYDROCORTISONE ACETATE 25 MG SUPP PR PRN (08:57)
[2025-07-11] MEDS ORDERED: MAGNESIUM HYDROXIDE SUSP 30 ML UDC PO PRN (08:57)
[2025-07-11] MEDS ORDERED: SENNA 8.6 MG TAB PO PRN (08:57)
[2025-07-11] MEDS: OXYTOCIN 20 UNITS/LR 1,002 ML IV SCH (09:11)
[2025-07-11] MEDS: KETOROLAC 30 MG/ML VIAL IV SCH (10:08)
[2025-07-11] MEDS: MoRPHine SULFATE PF 1 MG/ML 10 ML AMP/VIAL INT SPINAL ONE (12:02)
[2025-07-11] MEDS: SODIUM CHLORIDE 0.9% 1,000 ML IV SCH (12:03)
[2025-07-11] MEDS: DIPHTHER/TETAN/PERTUS Vaccine (Tdap, Adol/Adult) 0.5mL IM ONE (12:03)
--- NOTE | 2025-07-11 12:21 | Anesthesiology Progress Note ---
Date of Service July 11, 2025 Anesthesia Post Procedure Vital Signs Vital Signs: Temp Pulse Resp BP Pulse Ox 07/11/25 12:05 83 100 07/11/25 12:00 91 H 99 07/11/25 11:55 78 99 07/11/25 11:50 84 100 07/11/25 11:45 78 100 07/11/25 11:40 83 100 07/11/25 11:35 79 100 07/11/25 11:30 86 99 07/11/25 11:25 87 99 07/11/25 11:20 74 100 07/11/25 11:15 77 100 07/11/25 11:10 82 100 07/11/25 11:05 88 147/88 H 100 07/11/25 11:00 99 07/11/25 11:00 80 07/11/25 11:00 73 140/88 07/11/25 10:55 36.6 C 20 07/11/25 10:55 82 99 07/11/25 10:50 78 99 07/11/25 10:45 77 99 07/11/25 10:40 90 99 07/11/25 10:35 76 99 07/11/25 10:30 74 136/86 99 07/11/25 10:25 20 07/11/25 10:25 73 99 07/11/25 10:20 75 98 07/11/25 10:15 98 07/11/25 10:15 75 07/11/25 10:15 71 136/63 07/11/25 10:10 74 98 07/11/25 10:06 75 149/71 H 07/11/25 10:05 75 98 07/11/25 10:00 77 97 07/11/25 09:55 36.7 C 18 07/11/25 09:55 82 127/76 98 07/11/25 09:50 75 97 07/11/25 09:45 18 07/11/25 09:45 73 130/70 98 07/11/25 09:41 72 133/75 07/11/25 09:40 73 97 07/11/25 09:36 67 128/67 07/11/25 09:35 18 07/11/25 09:35 80 98 07/11/25 09:31 89 128/64 07/11/25 09:30 82 98 07/11/25 09:25 20 07/11/25 09:25 74 98 07/11/25 09:22 85 146/69 H 07/11/25 09:20 89 98 07/11/25 09:15 18 07/11/25 09:15 92 H 98 07/11/25 09:11 97 H 137/83 07/11/25 09:10 96 H 98 07/11/25 09:05 18 07/11/25 09:05 84 98 07/11/25 09:00 80 99 07/11/25 08:55 36.8 C 07/11/25 08:55 87 134/76 98 07/11/25 07:00 18 07/11/25 07:00 37.0 C 07/11/25 06:58 80 138/90 07/11/25 06:14 96 H 136/89 07/11/25 05:45 98 H 139/92 07/11/25 05:43 37.2 C 07/11/25 05:39 90 139/97 Pain Intensity Lower Abdomen: Pain Intensity: 1 Transfer of Care Handoff Completed per policy Notes Mental Status: alert / awake / arousable and participated in evaluation Nausea / Vomiting: adequately controlled Pain: adequately controlled Airway Patency, RR, SpO2: stable & adequate BP & HR: stable & adequate Hydration State: stable & adequate Neuraxial Anesthesia: was administered and sensory block is resolving Anesthetic Complications: no major complications apparent and Pt Satisfied with anesthetic care
[2025-07-11] MEDS: SIMETHICONE 80 MG CHEW PO SCH (15:08)
[2025-07-11] MEDS: ACETAMINOPHEN 325 MG TAB PO SCH (15:08)
[2025-07-11] MEDS: DOCUSATE SODIUM 100 MG CAP PO SCH (21:08)
[2025-07-12 00:08] VITALS: RESP 16
[2025-07-12] MEDS ORDERED: ONDANSETRON INJ 2 MG/ML 2 ML VIAL IV PRN (01:41)
[2025-07-12] MEDS ORDERED: PROMETHAZINE 12.5 MG/50.5 ML BAG IV PRN (01:41)
[2025-07-12] MEDS ORDERED: diphenhydrAMINE Capsule 25 MG CAP PO PRN (01:41)
[2025-07-12] MEDS ORDERED: HYDROmorphone INJ 0.5 MG/0.5 ML SYR IV PRN (01:41)
[2025-07-12] MEDS ORDERED: diphenhydrAMINE 50 MG/ML VIAL IV PRN (01:41)
--- NOTE | 2025-07-12 06:49 | Obstetrical Progress Note ---
Date of Service July 12, 2025 Assessment & Plan (1) examination following delivery: (2) Gestational diabetes: (3) Chronic hypertension affecting : (4) Aplastic anemia: Plan 30 y/o pod 1 s/p . complicated by breech position, GDM, CHTN, aplastic anemia. Feels well today. Vital signs stable Continue post- care Encourage ambulation and Pain controlled with ibuprofen Hgb stable Anticipate home discharge tomorrow, follow-up with Dr. Dennis in 6 weeks. Admission and Anticipated Discharge Date Admission Date: July 11, 2025 Supervising Physician Co-Signing Physician Notes Resident Physician Supervision Note: I was present with Dr. Guardado during the history and exam. I discussed the case with the resident and agree with the findings and plan as documented in the note. Any exceptions or clarifications are listed here: [None] Documented By: Maria Del Rosario Dennis MD, FACOG Subjective 30 y/o pod 1 s/p delivery. complicated by breech position, GDM, CHTN, aplastic anemia. Rh(+), rubella immune Ambulation: ambulating normally Voiding: no voiding problems Passing Gas:: Yes Diet Tolerance:: regular diet Lochia:: Small Feeding Type::breast Current Pain Level: minimal, controlled with ibuprofen Resting comfortably this AM in NAD. Denies SIMMONS, CP, SOB, N/V/D, LE pain/swelling. Physical Exam Physical Exam: General: patient resting comfortably, NAD, non-toxic in appearance, AA&O x 4, answers questions appropriately. Skin: warm, dry, intact HEENT: NC/AT, anicteric sclera, conjunctiva without injection, moist mucus membranes. Heart: +S1/S2, regular, no m/r/g Lungs: equal air entry bilaterally, no rales/rhonchi/wheezes Abd: +BS, soft, NT/ND, uterine fundus firm at umbilicus, incision C/D/I Ext: warm, no clubbing/cyanosis or edema Neuro: nonfocal, patient AA&O x 4, speech intact, no facial droop, moving all extremities on command. Results & Data Vital Signs (Past 12 Hours) Vital Signs Temp Pulse Pulse Resp BP BP Pulse Ox 07/12/25 03:20 36.8 C 85 16 128/82 96 07/11/25 23:50 16 97 07/11/25 23:50 37.2 C 86 18 127/82 97 07/11/25 22:00 18 97 07/11/25 21:00 16 95 07/11/25 20:35 16 96 07/11/25 19:23 36.6 C 80 16 135/85 98 07/11/25 19:20 18 98 O2 Del Method 07/12/25 03:20 Room Air 07/11/25 23:50 07/11/25 23:50 Room Air 07/11/25 22:00 07/11/25 21:00 07/11/25 20:35 07/11/25 19:23 Room Air 07/11/25 19:20
[2025-07-12 07:35] LABS: Hematocrit (blood only) 29.9 % (37.0-47.0); Hemoglobin 10.2 g/dl (12.0-16.0); Immature Granulocytes # (auto) 0.11 K/uL (0.01-0.20); Immature Granulocytes % (auto) 1.0 %; Mean Corpuscular Hemoglobin 29.1 pg (25.0-34.0); Mean Corpuscular Volume 85.4 fL (80.0-100.0); Platelet Count 182 K/uL (130-400); RDW Standard Deviation 41.4 fL (36.4-46.3); Red Blood Count 3.50 M/uL (4.20-5.40); White Blood Count 11.38 K/ul (4.8-10.8)
[2025-07-12] MEDS ORDERED: KETOROLAC 30 MG/ML VIAL IV PRN (08:50)
[2025-07-12] MEDS: IBUPROFEN 600 MG TAB PO SCH (08:59)
[2025-07-12] MEDS: PRENATAL VITAMIN 1 TAB PO SCH (08:59)
[2025-07-12] MEDS: FERROUS SULFATE 325 MG TAB PO SCH (08:59)
[2025-07-13 06:44] LABS: Hematocrit (blood only) 29.0 % (37.0-47.0); Hemoglobin 9.9 g/dl (12.0-16.0)
--- NOTE | 2025-07-13 07:10 | Obstetrical Progress Note ---
Date of Service July 13, 2025 Assessment & Plan (1) examination following delivery: (2) Gestational diabetes: (3) Chronic hypertension affecting : (4) Aplastic anemia: Plan 30 y/o pod 2 s/p . complicated by breech position, GDM, CHTN, aplastic anemia. Feels well today. Vital signs stable Continue post- care Encourage ambulation and Pain controlled with ibuprofen Hgb stable Anticipate home discharge today, follow-up with Dr. Dennis in 6 weeks. Admission and Anticipated Discharge Date Admission Date: July 11, 2025 Supervising Physician Co-Signing Physician Notes Patient seen with resident and agree with the above findings and plan. Stable for discharge Subjective 30 y/o pod 2 s/p delivery. complicated by breech position, GDM, CHTN, aplastic anemia. Rh(+), rubella immune Ambulation: ambulating normally Voiding: no voiding problems Passing Gas:: Yes Diet Tolerance:: regular diet Lochia:: Small Feeding Type::breast Current Pain Level: minimal, controlled with ibuprofen Resting comfortably this AM in NAD. Denies SIMMONS, CP, SOB, N/V/D, LE pain/swelling. Physical Exam Physical Exam: General: patient resting comfortably, NAD, non-toxic in appearance, AA&O x 4, answers questions appropriately. Skin: warm, dry, intact HEENT: NC/AT, anicteric sclera, conjunctiva without injection, moist mucus membranes. Heart: +S1/S2, regular, no m/r/g Lungs: equal air entry bilaterally, no rales/rhonchi/wheezes Abd: +BS, soft, NT/ND, uterine fundus firm at umbilicus, incision C/D/I Ext: warm, no clubbing/cyanosis or edema Neuro: nonfocal, patient AA&O x 4, speech intact, no facial droop, moving all extremities on command. Results & Data Vital Signs (Past 12 Hours) Vital Signs Temp Pulse Resp BP Pulse Ox O2 Del Method 07/13/25 03:00 36.8 C 98 H 16 135/85 98 Room Air 07/12/25 21:00 Room Air 07/12/25 21:00 37.1 C 90 16 146/90 H 98 Room Air
[2025-07-13] MEDS: IBUPROFEN 600 MG TAB PO PRN (09:07)
[2025-07-13 09:28] VITALS: PULSE 99; TEMP 99; O2SAT 100
[2025-07-13 09:32] VITALS: BP 146/94
[2025-07-13] MEDS ORDERED: ACETAMINOPHEN 325 MG TAB PO PRN (14:50)
== END 2025-07-13 12:00 | disposition home or self-care (01) | DRG 784 ==
LOC: 4S1 05:33 → EDSTATUS 07:30 → 4E2 12:15